=== PATIENT | male | born 1985 | race African-American/Black ===

== ENCOUNTER 2018-12-05 21:06 | Emergency (ER) | payer SELFPAY ==
[~2018-12-05] VITALS: Ht 175.3 cm; Wt 68.9 kg
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
[2018-12-05] MEDS ORDERED: IV NORMAL SALINE 1000ML BAG 1,000 ML IV ONE (22:00)
[2018-12-05 22:24] LABS: BASO % 1 % (0-3); EOS % 0 % (0-3); HEMATOCRIT 44.4 % (39.0-53.0); HEMOGLOBIN 14.7 g/dL (13.0-17.5); LYMPH # 0.9 x10^3/uL (1.0-4.8); LYMPH % 13 % (24-48); MEAN CORPUSCULAR HEMOGLOBIN 29 pg (25-35); MEAN CORPUSCULAR HGB CONC 33 g/dL (31-37); MEAN CORPUSCULAR VOLUME 88 fL (79-100); MONO # 0.7 x10^3/uL (0.0-1.1); MONO % 11 % (0-9); NEUT # 4.8 x10^3/uL (1.8-7.7); NEUT % 75 % (31-73); PLATELET COUNT 182 x10^3/uL (140-400); RED BLOOD COUNT 5.06 x10^6/uL (4.30-5.70); RED CELL DISTRIBUTION WIDTH 18.7 % (11.5-14.5); WHITE BLOOD COUNT 6.4 x10^3/uL (4.0-11.0)
[2018-12-05 22:34] LABS: CALCIUM 9.5 mg/dL (8.5-10.1); CREATININE 0.8 mg/dL (0.7-1.3); GFR 133.9; POTASSIUM 4.4 mmol/L (3.5-5.1)
[2018-12-05 22:35] LABS: PROTHROMBIN TIME PATIENT 11.9 SEC (11.7-14.0)
[2018-12-05 22:40] LABS: ALBUMIN 3.7 g/dL (3.4-5.0); ALBUMIN/GLOBULIN RATIO 1.2 (1.0-1.7); TOTAL BILIRUBIN 0.7 mg/dL (0.2-1.0); TOTAL PROTEIN 6.8 g/dL (6.4-8.2)
[2018-12-05] MEDS ORDERED: CONTRAST GIVEN. MC PRN (22:45)
[2018-12-05] MEDS ORDERED: IOHEXOL 300 MG/ML 100ML VIAL. IV ONE (22:45)
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
[2018-12-05] MEDS: MORPHINE SULFATE 2 MG/ML VIAL. IV ONE ×2 (23:08→23:50)
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
[2018-12-05] MEDS ORDERED: KETOROLAC 15 MG/ML VIAL. IV ONE (23:30)
[2018-12-05 23:38] VITALS: BP 127/81
== END 2018-12-05 23:58 | disposition home or self-care (01) ==
LOC: ER 21:06
DX: M79.632 Pain in left forearm (principal); R60.0 Localized edema; M25.532 Pain in left wrist; R10.84 Generalized abdominal pain; G89.11 Acute pain due to trauma; Y08.89XA Assault by other specified means, initial encounter; Y93.89 Activity, other specified; Y92.89 Other specified places as the place of occurrence of the external cause; Y99.8 Other external cause status
CPT/HCPCS: 36415; 73090; 73110; 74177; 80053; 83690; 85025; 85610; 85730; 96374; 99285; J1885; J7030; Q9967; J2270

== ENCOUNTER 2019-11-16 02:34 | Emergency (ER) | payer SELFPAY ==
[~2019-11-16] VITALS: Ht 175.3 cm; Wt 63.6 kg
--- NOTE | 2019-11-16 02:58 | PHYS DOC ---
Past Medical History Past Medical History: No Pertinent History Past Surgical History: No Surgical History Smoking Status: Current Every Day Smoker Alcohol Use: Occasionally Drug Use: Marijuana, Phencyclidine General Adult EDM: Chief Complaint: Palpitations HPI: HPI: The history was obtained from the patient. Patient is a 34-year-old male with H PCP usage who presents with a chief complaint of palpitations and insomnia. Patient states that he was at his PCP regularly. He states he has not had much sleep in the past 3 to 4 days. He states he feels that his heart is beating somewhat fast. Denies any feelings of irregular heartbeat. Denies chest pain or shortness of breath. States that he is wanting assistance with going to sleep. Denies any suicidal homicidal ideations. Denies any auditory or visual hallucinations. He is not taking these drugs in attempt to harm himself. Does note frequent alcohol usage. Denies abdominal pain or syncope. Denies objective fevers. Has not tried any medicine at home to help. Denies headaches. No other complaints. Review of Systems: Review of Systems: Constitutional: Positive for insomnia Eyes: Denies change in visual acuity. [] HENT: Denies nasal congestion or sore throat. [] Respiratory: Denies cough or shortness of breath. [] Cardiovascular: Positive for palpitations GI: Denies abdominal pain, nausea, vomiting, bloody stools or diarrhea. [] : Denies dysuria. [] Musculoskeletal: Denies back pain or joint pain. [] Integument: Denies rash. [] Neurologic: Denies headache, focal weakness or sensory changes. [] Endocrine: Denies polyuria or polydipsia. [] Lymphatic: Denies swollen glands. [] Psychiatric: Denies depression or anxiety. [] Heart Score: Risk Factors: Risk Factors: DM, Current or recent (<one month) smoker, HTN, HLP, family history of CAD, obesity. Risk Scores: Score 0 - 3: 2.5% MACE over next 6 weeks - Discharge Home Score 4 - 6: 20.3% MACE over next 6 weeks - Admit for Clinical Observation Score 7 - 10: 72.7% MACE over next 6 weeks - Early Invasive Strategies Allergies: Allergies: Allergies Coded Allergies Type Severity Reaction Last Updated Verified No Known Drug Allergies 10/05/18 No Physical Exam: PE: Constitutional: Well developed, well nourished, no acute distress, non-toxic appearance. [] HENT: Normocephalic, atraumatic, bilateral external ears normal, oropharynx moist, no oral exudates, nose normal. [] Eyes: PERRLA, EOMI, conjunctiva normal, no discharge. [] Neck: Normal range of motion, no tenderness, supple, no stridor. [] Cardiovascular:Heart rate regular rhythm, no murmur [] Lungs & Thorax: Bilateral breath sounds clear to auscultation [] Abdomen: soft, no tenderness, no masses, no pulsatile masses. [] Skin: Warm, dry, no erythema, no rash. [] Back: No tenderness, no CVA tenderness. [] Extremities: No tenderness, no cyanosis, no clubbing, ROM intact, no edema. [] Neurologic: Alert with intact cognitive function. No aphasia, dysarthria, or neglect. GCS 15. Pupils 3 mm briskly reactive b/l. No APD present. Cranial nerves 2-12 grossly intact; no facial asymmetry present, tongue midline, shoulder shrugging strength intact. Strength 5/5 and symmetric throughout. Light touch sensation intact throughout. Cerebellar testing appropriate without evidence of dysdiadochokinesia. DTR's 2+ in all 4 extremities. Negative pronator drift bilaterally. Gait normal Psychologic: Anxious. Rapid pressured speech. Appropriate mood. Insight appropriate. Current Patient Data: Labs: Laboratory Tests Test 11/16/19 02:59 White Blood Count 5.8 x10^3/uL Red Blood Count 4.79 x10^6/uL Hemoglobin 14.4 g/dL Hematocrit 42.3 % Mean Corpuscular Volume 88 fL Mean Corpuscular Hemoglobin 30 pg Mean Corpuscular Hemoglobin Concent 34 g/dL Red Cell Distribution Width 17.9 % Platelet Count 186 x10^3/uL Neutrophils (%) (Auto) 72 % Lymphocytes (%) (Auto) 13 % Monocytes (%) (Auto) 13 % Eosinophils (%) (Auto) 1 % Basophils (%) (Auto) 1 % Neutrophils # (Auto) 4.2 x10^3/uL Lymphocytes # (Auto) 0.7 x10^3/uL Monocytes # (Auto) 0.8 x10^3/uL Eosinophils # (Auto) 0.1 x10^3/uL Basophils # (Auto) 0.1 x10^3/uL Sodium Level 135 mmol/L Potassium Level 3.7 mmol/L Chloride Level 101 mmol/L Carbon Dioxide Level 29 mmol/L Anion Gap 5 Blood Urea Nitrogen 14 mg/dL Creatinine 0.9 mg/dL Estimated GFR (Cockcroft-Gault) 116.2 BUN/Creatinine Ratio 16 Glucose Level 94 mg/dL Calcium Level 8.7 mg/dL Total Bilirubin 1.3 mg/dL Aspartate Amino Transf (AST/SGOT) 19 U/L Alanine Aminotransferase (ALT/SGPT) 26 U/L Alkaline Phosphatase 73 U/L Total Protein 6.9 g/dL Albumin 3.7 g/dL Albumin/Globulin Ratio 1.2 Current Medications Medications (Trade) Dose Ordered Sig/Britni Route PRN Reason Start Time Stop Time Status Last Admin Dose Admin Hydroxyzine HCl (Atarax) 25 mg PRN Q6HRS PRN PO ITCHING 11/16/19 03:00 11/16/19 03:13 Sodium Chloride 1,000 ml @ 0 mls/hr 1X ONCE IV 11/16/19 03:30 11/16/19 03:31 DC 11/16/19 03:19 Vital Signs: Vital Signs Date Time Temp Pulse Resp B/P (MAP) Pulse Ox O2 Delivery O2 Flow Rate FiO2 11/16/19 04:19 82 15 113/64 (80) 99 Room Air 11/16/19 02:45 98.0 98.0 EKG: EKG: [] EKG consistent with normal sinus rhythm. Ventricular rate of 84 bpm. [place] normal. Intervals normal. No acute ischemic changes noted. Radiology/Procedures: Radiology/Procedures: [facility] [address] [place] [address] IMAGING REPORT Signed PATIENT: COLETTE SCHULZ ACCOUNT: [id number] : 1985 LOCATION: ER AGE: 34 SEX: M EXAM STATUS: REG ER ORD. PHYSICIAN: ANDREA PINZON DO REASON: abnormal LLL CXR PROCEDURE: CT CHEST WO CONTRAST INDICATION: Reason: abnormal LLL CXR / Spl. Instructions: / History: COMPARISON: Chest x-ray from same day TECHNIQUE: Axial CT images obtained through the chest. No intravenous contrast One or more of the following individualized dose reduction techniques were utilized for this examination: 1. Automated exposure control; 2. Adjustment of the mA and/or kV according to patient size; 3. Use of iterative reconstruction technique. FINDINGS: No evidence of pneumothorax. Within the lingula there is a masslike opacity identified abutting the pleura measuring up to approximately 3.8 cm. There is also some nodularity seen within the right lung as well as groundglass opacity. IMPRESSION: Masslike opacity in the left lung. Could be infectious in nature but a follow-up will be needed to ensure this resolves to exclude neoplasm. There is also some patchy opacity in the right lung which could be infectious or inflammatory in nature. Electronically signed by: Alcira Donaldson MD (11/16/2019 4:19 AM) [id number] DICTATED and SIGNED BY: ALCIRA DONALDSON MD DATE: 11/16/19 0419 [] Course & Med Decision Making: Course & Med Decision Making Pertinent Labs and Imaging studies reviewed. (See chart for details) [] Patient is a 34-year-old male who presents with chief complaint of insomnia and palpitations. Initial vital signs unremarkable. EKG without acute ischemic changes. Basic labs were obtained and were grossly unremarkable. Chest x-ray did reveal an abnormality in the left lower lobe. CT imaging of the chest did reveal a masslike structure versus infectious etiology. Patient does tell me that he was notified of an abnormal chest CT at [facility] in January 2019. Does not establish follow-up for this yet. He denies any productive cough. Lung sounds are normal. Afebrile. Not tachypneic. Not hypoxic. However given there is concern on imaging for infectious etiology he will be given a short course of doxycycline. I did discuss the possibility of hospitalization for further work-up of his mass. He is declining at this time requesting outpatient management. Overall I do feel this is reasonable and does not require inpatient evaluation at this time. He will be given referrals to primary care physicians to establish outpatient follow-up. Return precautions were discussed and understood. Patient is agreeable to this plan is stable for discharge home. Dragon Disclaimer: Dragon Disclaimer: This electronic medical record was generated, in whole or in part, using a voice recognition dictation system. Departure Departure Impression: Primary Impression: Insomnia Qualified Codes: F19.982 - Other psychoactive substance use, unspecified with psychoactive substance-induced sleep disorder Additional Impressions: PCP abuse Abnormal chest CT Disposition: HOME, SELF-CARE Condition: STABLE Referrals: NO PCP (PCP) Patient Instructions: Lung Biopsy Additional Instructions: Please follow-up with your primary care physician in the next 2 to 3 days. Please return emergency department the next 2 to 3 days should your symptoms not improve or worsen. [facility] [address] [place] [address] [facility] [address] [place] [address] [facility] [address] [facility] [place] [address] [facility] [address] [place] [address] [facility] [address] [place] [address] [address] [address] [place] [address] [address] [address] [place] [address] [facility] [address] [place] [address] [facility] [address] [place] [address] [facility] [address] [place] [address] Scripts Doxycycline Hyclate (DOXYCYCLINE HYCLATE) 100 Mg Capsule 1 CAP PO BID, #14 CAP Prov: ANDREA PINZON DO 11/16/19 Justicifation of Admission Dx: Justifications for Admission: Justification of Admission Dx: N/A ANDREA PINZON DO Nov 16, 2019 02:58
[2019-11-16] MEDS ORDERED: hydrOXYzine 25 MG TABLET PO PRN (03:00)
[2019-11-16 03:10] LABS: BASO # 0.1 x10^3/uL (0.0-0.2); BASO % 1 % (0-3); EOS # 0.1 x10^3/uL (0.0-0.7); EOS % 1 % (0-3); HEMATOCRIT 42.3 % (39.0-53.0); HEMOGLOBIN 14.4 g/dL (13.0-17.5); LYMPH # 0.7 x10^3/uL (1.0-4.8); LYMPH % 13 % (24-48); MEAN CORPUSCULAR HEMOGLOBIN 30 pg (25-35); MEAN CORPUSCULAR HGB CONC 34 g/dL (31-37); MEAN CORPUSCULAR VOLUME 88 fL (79-100); MONO # 0.8 x10^3/uL (0.0-1.1); MONO % 13 % (0-9); NEUT # 4.2 x10^3/uL (1.8-7.7); NEUT % 72 % (31-73); PLATELET COUNT 186 x10^3/uL (140-400); RED BLOOD COUNT 4.79 x10^6/uL (4.30-5.70); RED CELL DISTRIBUTION WIDTH 17.9 % (11.5-14.5); WHITE BLOOD COUNT 5.8 x10^3/uL (4.0-11.0)
[2019-11-16 03:17] LABS: CALCIUM 8.7 mg/dL (8.5-10.1); CREATININE 0.9 mg/dL (0.7-1.3); GFR 116.2; POTASSIUM 3.7 mmol/L (3.5-5.1)
[2019-11-16 03:22] LABS: ALBUMIN 3.7 g/dL (3.4-5.0); ALBUMIN/GLOBULIN RATIO 1.2 (1.0-1.7); TOTAL BILIRUBIN 1.3 mg/dL (0.2-1.0); TOTAL PROTEIN 6.9 g/dL (6.4-8.2)
--- NOTE | 2019-11-16 03:24 | RAD ---
INDICATION: Reason: palpitations / Spl. Instructions: / History: COMPARISON: None. FINDINGS: Single view of chest obtained. Focal opacity at the left lower lung. Cardiac silhouette is unremarkable. No gross osseous destructive lesion. IMPRESSION: * Round opacity in the left lower lung which could be secondary to round pneumonia or atelectasis but a follow-up should be obtained to ensure this resolves to exclude neoplastic causes. Electronically signed by: Parviz Donaldson MD (11/16/2019 3:21 AM) [id number]
[2019-11-16] MEDS ORDERED: IV NORMAL SALINE 1000ML BAG 1,000 ML IV ONE (03:30)
--- NOTE | 2019-11-16 04:22 | RAD ---
INDICATION: Reason: abnormal LLL CXR / Spl. Instructions: / History: COMPARISON: Chest x-ray from same day TECHNIQUE: Axial CT images obtained through the chest. No intravenous contrast One or more of the following individualized dose reduction techniques were utilized for this examination: 1. Automated exposure control; 2. Adjustment of the mA and/or kV according to patient size; 3. Use of iterative reconstruction technique. FINDINGS: No evidence of pneumothorax. Within the lingula there is a masslike opacity identified abutting the pleura measuring up to approximately 3.8 cm. There is also some nodularity seen within the right lung as well as groundglass opacity. IMPRESSION: Masslike opacity in the left lung. Could be infectious in nature but a follow-up will be needed to ensure this resolves to exclude neoplasm. There is also some patchy opacity in the right lung which could be infectious or inflammatory in nature. Electronically signed by: Parviz Donaldson MD (11/16/2019 4:19 AM) [id number]
[2019-11-16 04:49] VITALS: BP 110/68
[2019-11-16] MEDS ORDERED: DOXY100C2 PO (04:55)
--- NOTE | 2019-11-16 05:45 | EKG ---
[facility] [address] [place] [address] Test Date: 2019-11-16 Test Time: 02:52:46 Pat Name: COLETTE SCHULZ Department: Room: Gender: M [employer] Equipment Operator: : 1985 Requested By: ANDREA PINZON Order Number: [id number] Reading MD: Dann Ramos MD Measurements Intervals [place] Rate: 84 P: 54 WI: 146 QRS: 65 QRSD: 80 T: 36 QT: 352 QTc: 419 Interpretive Statements SINUS RHYTHM NON-SPECIFIC ST/T CHANGES Electronically Signed On 11-16-2019 13:18:55 CDT by Dann Ramos MD
== END 2019-11-16 05:02 | disposition home or self-care (01) ==
LOC: ER 02:34
DX: G47.00 Insomnia, unspecified (principal); F19.982 Other psychoactive substance use, unspecified with psychoactive substance-induced sleep disorder; R00.2 Palpitations; R93.89 Abnormal findings on diagnostic imaging of other specified body structures; F17.200 Nicotine dependence, unspecified, uncomplicated; F12.90 Cannabis use, unspecified, uncomplicated; F19.90 Other psychoactive substance use, unspecified, uncomplicated
CPT/HCPCS: 36415; 71045; 71250; 80053; 85025; 93005; 96360; 96361; 99285; J7030